=== PATIENT | male | born 1985 | race Caucasian/White ===

== ENCOUNTER 2018-02-14 23:11 | Emergency (ER) | payer OTHER ==
[2018-02-14] MEDS ORDERED: LIDOCAINE 1% W/EPI MPF 30 ML SOL INFIL ONE (23:30)
[2018-02-14] MEDS ORDERED: LIDOCAINE 1% W/EPI MPF 30 ML SOL ONE (23:47)
[2018-02-15 03:08] VITALS: BP 138/92; PULSE 52; RESP 16; TEMP 98.4; O2SAT 98
== END 2018-02-15 00:11 | disposition home or self-care (01) | DRG 605 ==
LOC: ED 23:11
DX: S01.01XA Laceration without foreign body of scalp, initial encounter (principal); V86.99XA Unspecified occupant of other special all-terrain or other off-road motor vehicle injured in nontraffic accident, initial encounter
CPT/HCPCS: 12002; 99282; A6402

== ENCOUNTER 2019-02-11 21:40 | Emergency (ER) | payer OTHER ==
[2019-02-11] MEDS ORDERED: ONDANSETRON 4 MG ODT BU PRN (22:03)
[2019-02-11] MEDS ORDERED: KETOROLAC TROMETHAMINE 30 MG/ML SOL IM ONE (22:03)
[2019-02-11 22:04] VITALS: TEMP 98.3
[2019-02-11] MEDS ORDERED: KETOROLAC TROMETHAMINE 30 MG/ML SOL ONE (22:07)
[2019-02-11 22:33] VITALS: RESP 20
[2019-02-11 23:19] VITALS: BP 126/77; PULSE 70; O2SAT 100
[2019-02-12 07:11] LABS: APPEARANCE,URINE Clear; BILIRUBIN,URINE NEGATIVE (NEGATIVE); COLOR,URINE Yellow; GLUCOSE, URINE (UA) NEGATIVE (NEGATIVE); KETONES,URINE NEGATIVE (NEGATIVE); LEUKOCYTE ESTERASE ,URINE NEGATIVE (NEGATIVE); NITRATE,URINE NEGATIVE (NEGATIVE); OCCULT BLOOD,URINE NEGATIVE (NEG-TRACE); PH,URINE 5.5; UROBILINOGEN,URINE 0.2 (0.2-1.0 EU)
[2019-02-12 07:18] LABS: BACTERIA RARE (< 1+); CRYSTALS NEGATIVE (0-3 AVE/HPF); EPITHELIAL CELLS 0-2 (SQUAMOUS); RBC,URINE 0-2 (0-3AV/HPF); WBC,URINE 0-2 (0-5AV/HPF)
== END 2019-02-11 23:17 | disposition home or self-care (01) | DRG 605 ==
LOC: ED 21:40
DX: S30.810A Abrasion of lower back and pelvis, initial encounter (principal); W55.29XA Other contact with cow, initial encounter; T14.8XXA Other injury of unspecified body region, initial encounter; S06.0X0A Concussion without loss of consciousness, initial encounter
CPT/HCPCS: 70450; 72120; 73070; 73562; 81001; 96372; 99283; 99284; G0390; J1885